=== PATIENT | female | born 1990 | race Caucasian/White ===

== ENCOUNTER 2020-12-11 13:11 | Observation (INO) | payer BC ==
[~2020-12-11] VITALS: Ht 157.5 cm; Wt 68.0 kg
[2020-12-11 13:14] VITALS: BP 126/79
--- NOTE | 2020-12-11 13:29 | NUR ---
4G 1T 0P 3A 1L LMP: 05/05/2020 EST: 30 WEEKS
--- NOTE | 2020-12-11 13:31 | NUR ---
30 Y/O FEMALE CAME TO THE ED C/O RT FACIAL NUMBNESS. PT IS 30 WEEKS . PT STATES THAT "I WAS TOLD BY MY BRANCH MANAGER TRAINEE TO CALL DR. JANG AND TO GO HERE FOR ANY SYMPTOMS OF VASQUEZ'S PALSY." PT WAS RT EYE PAIN OF 2/10, "FEELS TIGHT AND NUMB". DENIES N/V/D; SKIN IS PINK/WARM/DRY; AAOX4 WITH EVEN AND STEADY GAIT; VSS; PATIENT POSITIONED FOR COMFORT; HOB ELEVATED; BEDRAILS UP X2; BED DOWN. ER MD MADE AWARE OF PT STATUS. NKA PMH: DENIES LMP: 05/05/22 G5 T1 P0 M3 A0 L1
--- NOTE | 2020-12-11 13:35 | NUR ---
ELBA Henry is evaluating the patient at bedside.
[2020-12-11] MEDS ORDERED: PRED20TA5 PO (14:08)
[2020-12-11] MEDS ORDERED: PRED10TA5 PO (14:08)
[2020-12-11] MEDS ORDERED: ACYC400T1 PO (14:08)
[2020-12-11 14:27] VITALS: BP 126/79
--- NOTE | 2020-12-11 14:28 | NUR ---
PT WAS BEING DISCHARGED HERE IN THE ED, AND IS GOING TO BE SEEN AT L&D PER ERMD. Patient discharged with v/s stable. Written and verbal after care instructions given and explained. Patient alert, oriented and verbalized understanding of instructions. Ambulatory with steady gait. All questions addressed prior to discharge. ID band removed. Patient advised to follow up with PMD. Rx of ACYCLOVIR, PREDNISONE given. Patient educated on indication of medication including possible reaction and side effects. Opportunity to ask questions provided and answered.
== END 2020-12-11 15:35 | disposition home or self-care (01) ==
LOC: MED 13:11 → MLD 14:28
PROVIDERS: ADMIT Obstetrics & Gynecology; ATTEND Obstetrics & Gynecology
DX: O99.353 Diseases of the nervous system complicating pregnancy, third trimester (principal); G51.0 Bell's palsy; Z3A.31 31 weeks gestation of pregnancy
CPT/HCPCS: 59025; 99283; G0378

== ENCOUNTER 2021-02-03 21:56 | Inpatient (IN) | payer BC ==
[~2021-02-03] VITALS: Ht 157.5 cm; Wt 70.3 kg
[~2021-02-03 21:56] MED LIST: ACYC-276 PO; PRED10TA5 PO; PRED20TA5 PO
[2021-02-03] MEDS ORDERED: AMPICILLIN 2,000 MG VIAL ONE (22:01)
[2021-02-03] MEDS ORDERED: OXYTOCIN 20 UNITS/LR PREMIX 1,000 ML IV ONE (22:06)
[2021-02-03] MEDS ORDERED: LIDOCAINE 1% 500 MG/50 ML VIAL ONE (22:38)
[2021-02-03] MEDS ORDERED: MORPHINE SULFATE 10 MG/ML VIAL ONE ×2 (22:38→22:52)
[2021-02-03] MEDS ORDERED: METHYLERGONOVINE 0.2 MG/ML AMP ONE (22:38)
[2021-02-03] MEDS ORDERED: METHYLERGONOVINE 0.2 MG TAB PO PRN (23:35)
[2021-02-03] MEDS ORDERED: BENZOCAINE/MENTHOL 20%-0.5% 60 GM CAN TP PRN (23:35)
[2021-02-03] MEDS ORDERED: IBUPROFEN 800 MG TAB PO PRN (23:35)
[2021-02-03] MEDS ORDERED: OXYTOCIN 10 UNITS/ML VIAL IM PRN (23:35)
[2021-02-03] MEDS ORDERED: METHYLERGONOVINE 0.2 MG/ML AMP IM PRN (23:35)
[2021-02-03] MEDS ORDERED: LACTATED RINGERS 1,000 ML IV SCH (23:40)
[2021-02-04] MEDS ORDERED: oxyCODONE/APAP 5/325 MG 1 TAB TAB PO PRN ×2 (00:05)
[2021-02-04 00:22] LABS: BASOPHILS % (AUTO) 0.5 % (0.0-2.0); EOSINOPHILS % (AUTO) 0.4 % (0.0-4.0); LYMPHOCYTES # (AUTO) 0.7 K/uL (2.5-16.5); LYMPHOCYTES % (AUTO) 7.2 % (20.5-51.1); MEAN CORPUSCULAR HEMOGLOBIN 30 pg (27-31); MEAN CORPUSCULAR HGB CONC 33 g/dL (33-37); MEAN CORPUSCULAR VOLUME 91.3 fL (80-94); MONOCYTES # (AUTO) 0.1 K/uL (0.8-1.0); MONOCYTES % (AUTO) 1.5 % (1.7-9.3); NEUTROPHILS # (AUTO) 8.2 K/uL (1.8-7.7); NEUTROPHILS % (AUTO) 90.4 % (42.2-75.2); PLATELET COUNT (AUTO) 126 K/uL (140-450); RED BLOOD CELL COUNT(AUTO) 2.12 MIL/uL (4.20-5.40); RED CELL DISTRIBUTION WIDTH 15.5 % (11.6-13.7); WHITE BLOOD COUNT (AUTO) 9.1 K/uL (4.8-10.8)
[2021-02-04 00:27] LABS: HEMATOCRIT 19.4 % (36-48); HEMOGLOBIN 6.5 g/dL (12.0-16.0)
[2021-02-04 03:19] VITALS: BP 119/68
[2021-02-04 05:32] LABS: HEMATOCRIT 39.7 % (36-48); HEMOGLOBIN 13.4 g/dL (12.0-16.0)
--- NOTE | 2021-02-04 07:41 | NUR ---
PATIENT HAS BEEN SCREENED AND CATEGORIZED LOW NUTRITION RISK. PATIENT WILL BE SEEN WITHIN 7 DAYS OF ADMISSION. 02/10/[address]
[2021-02-04] MEDS: IBUPROFEN 600 MG TAB PO PRN (09:08)
[2021-02-05] MEDS: IBUPROFEN 600 MG TAB PO PRN (10:09)
[2021-02-05 18:02] LABS: HEPATITIS B SURFACE ANTIGEN NEGATIVE (NEGATIVE)
== END 2021-02-05 11:45 | disposition home or self-care (01) | DRG 807 ==
LOC: MLD 21:56 → MFCC 02-04 02:20
PROVIDERS: ADMIT Obstetrics & Gynecology; ATTEND Obstetrics & Gynecology
PROC: 3E0234Z Introduction of Serum, Toxoid and Vaccine into Muscle, Percutaneous Approach (ICD-10-PCS; 2021-02-03)
PROC: 10E0XZZ Delivery of Products of Conception, External Approach (ICD-10-PCS; principal; 2021-02-04)
PROC: 0KQM0ZZ Repair Perineum Muscle, Open Approach (ICD-10-PCS; 2021-02-04)
PROC: 3E0234Z Introduction of Serum, Toxoid and Vaccine into Muscle, Percutaneous Approach (ICD-10-PCS; 2021-02-04)
DX: O26.893 Other specified pregnancy related conditions, third trimester (principal); Z37.0 Single live birth; O70.1 Second degree perineal laceration during delivery; Z3A.39 39 weeks gestation of pregnancy; Z23 Encounter for immunization; Z67.41 Type O blood, Rh negative
CPT/HCPCS: 36415; 59409; 85018; 85025; 86592; 86762; 86850; 86886; 86900; 86901; 87340; J0290; J2001; J2210; J2270; J2590; J2790